=== PATIENT | female | born 1930 | race Caucasian/White ===

== ENCOUNTER 2017-01-15 06:26 | Inpatient (IN) | payer MEDICARE, OTHER ==
[~2017-01-15] VITALS: Ht 162.6 cm; Wt 97.8 kg
[2017-01-15] MEDS ORDERED: ALBUTEROL/IPRATROPIUM 2.5MG/0.5MG, 3 ML NPPB ONE (07:00)
[2017-01-15] MEDS ORDERED: ALBUTEROL/IPRATROPIUM 2.5MG/0.5MG, 3 ML ONE (07:02)
[2017-01-15] MEDS ORDERED: FLUT1DIS5 IH (07:37)
[2017-01-15] MEDS ORDERED: FURO40TA6 PO (07:37)
[2017-01-15] MEDS ORDERED: GUAI1TBM11 PO (07:37)
[2017-01-15] MEDS ORDERED: FLUT1DIS IH (07:37)
[2017-01-15] MEDS ORDERED: ACET250T2 PO (07:51)
[2017-01-15] MEDS ORDERED: TIOT18CA INH (07:51)
[2017-01-15] MEDS ORDERED: METO25TA35 PO (07:51)
[2017-01-15] MEDS ORDERED: ALBU8.5H8 IH (07:51)
[2017-01-15] MEDS ORDERED: POTA10TA11 PO (07:51)
[2017-01-15] MEDS ORDERED: ALBU1.25 NEB (07:51)
[2017-01-15] MEDS ORDERED: POTA500P26 PO (07:51)
[2017-01-15] MEDS ORDERED: MONT10TA6 PO (07:51)
[2017-01-15] MEDS ORDERED: MAGNESIUM SULFATE PMX 2GM/50ML 50 ML IV ONE (08:00)
[2017-01-15] MEDS ORDERED: FUROSEMIDE 20 MG/2 ML IV ONE (08:30)
[2017-01-15] MEDS ORDERED: FUROSEMIDE 20 MG/2 ML ONE (09:05)
[2017-01-15 10:15] VITALS: BP 129/68
[2017-01-15] MEDS ORDERED: hydrALAzine 20 MG/ML, 1ML IVPush PRN (10:30)
[2017-01-15] MEDS ORDERED: ONDANSETRON ODT 4 MG PO PRN (10:30)
[2017-01-15] MEDS ORDERED: GUAIFENESIN/DM 200-20MG, 10ML UDC PO PRN ×2 (10:30)
[2017-01-15] MEDS ORDERED: ONDANSETRON 2MG/ML, 2ML IVPush PRN (10:30)
[2017-01-15] MEDS ORDERED: BISACODYL 10 MG SUPP PR PRN (10:30)
[2017-01-15] MEDS ORDERED: HYDROcodone/APAP 5/325 TABLET PO PRN (10:30)
[2017-01-15] MEDS ORDERED: TRAZODONE 50MG TABLET PO PRN (10:30)
[2017-01-15] MEDS ORDERED: morphine SULFATE 10 MG/ML, 1ML IVPush PRN (10:30)
[2017-01-15] MEDS ORDERED: ACETAMINOPHEN 325 MG TABLET PO PRN (10:30)
[2017-01-15] MEDS ORDERED: ALBUTEROL SULFATE 2.5MG/0.5ML NEB PRN (11:00)
[2017-01-15] MEDS: ALBUTEROL/IPRATROPIUM 2.5MG/0.5MG, 3 ML NPPB SCH ×4 (11:00→22:57)
[2017-01-15] MEDS: methylPREDNISolone SOD SUCC 125 MG/2 ML IVPush SCH ×3 (11:20→23:27)
[2017-01-15] MEDS: LEVOFLOXACIN/PMX 750MG/150ML 150 ML IV SCH (11:20)
[2017-01-15] MEDS: ENOXAPARIN 40 MG/0.4 ML SQ SCH (11:22)
[2017-01-15] MEDS: MONTELUKAST 10 MG TABLET PO SCH (11:22)
[2017-01-15 13:54] VITALS: BP 124/78
[2017-01-15 20:12] VITALS: BP_SYST 146; BP_SYST 167; BP_DIAS 78; BP_DIAS 81
[2017-01-15] MEDS: FAMOTIDINE 20 MG TABLET PO SCH (20:41)
[2017-01-16 00:36] VITALS: BP_SYST 154; BP_SYST 155; BP_DIAS 76; BP_DIAS 78
[2017-01-16] MEDS: ALBUTEROL/IPRATROPIUM 2.5MG/0.5MG, 3 ML NPPB SCH ×5 (02:56→19:04)
[2017-01-16] MEDS: methylPREDNISolone SOD SUCC 125 MG/2 ML IVPush SCH ×4 (05:21→22:36)
[2017-01-16 05:25] LABS: HEMOGLOBIN 13.3 g/dL (11.7-16.4)
[2017-01-16 05:49] LABS: BLOOD UREA NITROGEN 19 mg/dL (7-18)
[2017-01-16] MEDS: POTASSIUM CHLORIDE 20 MEQ TAB.ER.PRT PO SCH (08:48)
[2017-01-16] MEDS: MONTELUKAST 10 MG TABLET PO SCH (08:49)
[2017-01-16] MEDS: FAMOTIDINE 20 MG TABLET PO SCH ×2 (08:50→20:08)
[2017-01-16] MEDS: METOPROLOL TARTRATE 25 MG TABLET PO SCH (08:52)
[2017-01-16] MEDS: ALBUTEROL SULFATE IH SCH (09:00)
[2017-01-16] MEDS ORDERED: FUROSEMIDE 40 MG TABLET PO SCH (09:00)
[2017-01-16 09:15] VITALS: BP 142/64
[2017-01-16] MEDS: ENOXAPARIN 40 MG/0.4 ML SQ SCH (11:36)
[2017-01-16] MEDS: LEVOFLOXACIN/PMX 750MG/150ML 150 ML IV SCH (11:45)
[2017-01-16 13:55] VITALS: BP 145/75
[2017-01-16 20:02] VITALS: BP 142/74
[2017-01-17 01:49] VITALS: BP 111/58
[2017-01-17] MEDS: methylPREDNISolone SOD SUCC 125 MG/2 ML IVPush SCH ×4 (04:25→23:25)
[2017-01-17 04:43] LABS: HEMOGLOBIN 13.4 g/dL (11.7-16.4); WHITE BLOOD COUNT 12.5 x10^3/uL (3.4-10)
[2017-01-17 04:56] LABS: BLOOD UREA NITROGEN 34 mg/dL (7-18)
[2017-01-17 07:00] VITALS: BP 157/91
[2017-01-17] MEDS: ALBUTEROL/IPRATROPIUM 2.5MG/0.5MG, 3 ML NPPB SCH ×4 (07:00→19:03)
[2017-01-17] MEDS: ALBUTEROL SULFATE IH SCH (09:00)
[2017-01-17] MEDS: POTASSIUM CHLORIDE 20 MEQ TAB.ER.PRT PO SCH (09:07)
[2017-01-17] MEDS: MONTELUKAST 10 MG TABLET PO SCH (09:07)
[2017-01-17] MEDS: FAMOTIDINE 20 MG TABLET PO SCH ×2 (09:08→21:12)
[2017-01-17] MEDS: METOPROLOL TARTRATE 25 MG TABLET PO SCH (10:57)
[2017-01-17] MEDS: LEVOFLOXACIN/PMX 750MG/150ML 150 ML IV SCH (10:57)
[2017-01-17] MEDS: ENOXAPARIN 40 MG/0.4 ML SQ SCH (10:58)
[2017-01-17] MEDS: ENOXAPARIN 30 MG/0.3 ML SQ SCH (11:00)
[2017-01-17 13:20] VITALS: BP 142/81
[2017-01-17] MEDS ORDERED: SODIUM CHLORIDE 0.9%, 250ML IVBOLUS ONE (16:30)
[2017-01-17 20:20] VITALS: BP 147/82
[2017-01-18 04:29] LABS: HEMATOCRIT 43.1 % (34.6-47.8); WHITE BLOOD COUNT 10.5 x10^3/uL (3.4-10)
[2017-01-18 04:40] LABS: BLOOD UREA NITROGEN 30 mg/dL (7-18)
[2017-01-18] MEDS: methylPREDNISolone SOD SUCC 125 MG/2 ML IVPush SCH ×4 (04:51→22:28)
[2017-01-18 05:00] VITALS: BP 160/82
[2017-01-18] MEDS: ALBUTEROL/IPRATROPIUM 2.5MG/0.5MG, 3 ML NPPB SCH ×6 (07:00→19:39)
[2017-01-18 08:19] VITALS: BP 156/79
[2017-01-18] MEDS: ALBUTEROL SULFATE IH SCH (09:00)
[2017-01-18] MEDS: METOPROLOL TARTRATE 25 MG TABLET PO SCH (09:13)
[2017-01-18] MEDS: FAMOTIDINE 20 MG TABLET PO SCH ×2 (09:13→20:06)
[2017-01-18] MEDS: POTASSIUM CHLORIDE 20 MEQ TAB.ER.PRT PO SCH (09:13)
[2017-01-18] MEDS: MONTELUKAST 10 MG TABLET PO SCH (09:13)
[2017-01-18 10:03] LABS: POTASSIUM,URINE RANDOM 48 mmol/L
[2017-01-18] MEDS: ENOXAPARIN 30 MG/0.3 ML SQ SCH (11:16)
[2017-01-18] MEDS: LEVOFLOXACIN/PMX 750MG/150ML 150 ML IV SCH (11:16)
[2017-01-18] MEDS: POLYETHYLENE GLYCOL 17 GM PACKET PO PRN (11:57)
[2017-01-18 12:48] VITALS: BP 170/79
[2017-01-18 20:45] VITALS: BP 162/82
[2017-01-19 03:54] VITALS: BP 152/75
[2017-01-19 04:55] LABS: HEMATOCRIT 42.1 % (34.6-47.8); HEMOGLOBIN 13.9 g/dL (11.7-16.4); WHITE BLOOD COUNT 9.2 x10^3/uL (3.4-10)
[2017-01-19 05:06] LABS: BLOOD UREA NITROGEN 30 mg/dL (7-18)
[2017-01-19] MEDS: methylPREDNISolone SOD SUCC 125 MG/2 ML IVPush SCH (05:57)
[2017-01-19] MEDS: ALBUTEROL/IPRATROPIUM 2.5MG/0.5MG, 3 ML NPPB SCH ×4 (07:00→20:00)
[2017-01-19 07:17] VITALS: BP 169/81
[2017-01-19] MEDS: FAMOTIDINE 20 MG TABLET PO SCH ×2 (10:16→20:41)
[2017-01-19] MEDS: POTASSIUM CHLORIDE 20 MEQ TAB.ER.PRT PO SCH (10:16)
[2017-01-19] MEDS: MONTELUKAST 10 MG TABLET PO SCH (10:16)
[2017-01-19] MEDS: LEVOFLOXACIN/PMX 750MG/150ML 150 ML IV SCH (10:16)
[2017-01-19] MEDS: METOPROLOL TARTRATE 25 MG TABLET PO SCH (10:16)
[2017-01-19] MEDS: ALBUTEROL SULFATE IH SCH (10:17)
[2017-01-19] MEDS: ENOXAPARIN 40 MG/0.4 ML SQ SCH (10:28)
[2017-01-19] MEDS ORDERED: FAMO20TA7 PO (11:24)
[2017-01-19] MEDS ORDERED: LEVO750T26 PO (11:24)
[2017-01-19] MEDS ORDERED: METH4TAB2 PO (11:24)
[2017-01-19 12:58] VITALS: BP 147/80
[2017-01-19 18:44] VITALS: BP 152/90
[2017-01-20 01:12] VITALS: BP 146/71
[2017-01-20] MEDS: ALBUTEROL/IPRATROPIUM 2.5MG/0.5MG, 3 ML NPPB SCH ×4 (07:20→20:00)
[2017-01-20 07:35] VITALS: BP 130/77
[2017-01-20] MEDS: ALBUTEROL SULFATE IH SCH (09:00)
[2017-01-20] MEDS: MONTELUKAST 10 MG TABLET PO SCH (10:14)
[2017-01-20] MEDS: FAMOTIDINE 20 MG TABLET PO SCH ×2 (10:14→19:26)
[2017-01-20] MEDS: METOPROLOL TARTRATE 25 MG TABLET PO SCH (10:15)
[2017-01-20] MEDS: POTASSIUM CHLORIDE 20 MEQ TAB.ER.PRT PO SCH (10:15)
[2017-01-20] MEDS: LEVOFLOXACIN/PMX 750MG/150ML 150 ML IV SCH ×2 (11:30→11:50)
[2017-01-20] MEDS: ENOXAPARIN 40 MG/0.4 ML SQ SCH (11:50)
[2017-01-20 12:50] VITALS: BP 107/72
[2017-01-20] MEDS ORDERED: HYDROcodone/APAP 5/325 TABLET PO PRN (19:00)
[2017-01-20] MEDS ORDERED: hydrALAzine 20 MG/ML, 1ML IVPush PRN (19:00)
[2017-01-20] MEDS ORDERED: ONDANSETRON ODT 4 MG PO PRN (19:00)
[2017-01-20] MEDS ORDERED: ACETAMINOPHEN 325 MG TABLET PO PRN (19:00)
[2017-01-20] MEDS ORDERED: BISACODYL 10 MG SUPP PR PRN (19:30)
[2017-01-20] MEDS ORDERED: ONDANSETRON 2MG/ML, 2ML IVPush PRN (19:30)
[2017-01-20 19:39] VITALS: BP 121/74
[2017-01-21 03:09] VITALS: BP 115/55
[2017-01-21] MEDS: ALBUTEROL/IPRATROPIUM 2.5MG/0.5MG, 3 ML NPPB SCH ×3 (04:43→14:45)
[2017-01-21 05:18] LABS: BLOOD UREA NITROGEN 26 mg/dL (7-18)
[2017-01-21 05:22] LABS: HEMATOCRIT 42.8 % (34.6-47.8); WHITE BLOOD COUNT 12.9 x10^3/uL (3.4-10)
[2017-01-21 07:06] VITALS: BP 133/73
[2017-01-21] MEDS: ALBUTEROL SULFATE IH SCH (09:00)
[2017-01-21] MEDS: POTASSIUM CHLORIDE 20 MEQ TAB.ER.PRT PO SCH (09:50)
[2017-01-21] MEDS: FAMOTIDINE 20 MG TABLET PO SCH (09:51)
[2017-01-21] MEDS: METOPROLOL TARTRATE 25 MG TABLET PO SCH (09:51)
[2017-01-21] MEDS: MONTELUKAST 10 MG TABLET PO SCH (09:52)
[2017-01-21] MEDS: LEVOFLOXACIN/PMX 750MG/150ML 150 ML IV SCH (11:30)
[2017-01-21] MEDS: ENOXAPARIN 40 MG/0.4 ML SQ SCH (12:06)
[2017-01-21 12:51] VITALS: BP 124/76
[2017-01-21] MEDS: POLYETHYLENE GLYCOL 17 GM PACKET PO PRN (13:48)
[2017-01-21] MEDS ORDERED: FLU VACC QS2017-18 (36MOS+) UP/PF 0.5 ML IM-VACC ONE (17:00)
== END 2017-01-21 17:50 | DRG 871 ==
LOC: ED 07:12 → EDIP 08:12 → 3NW 10:02
PROVIDERS: ADMIT Internal Medicine; ATTEND Internal Medicine
DX: A41.9 Sepsis, unspecified organism (principal); J96.21 Acute and chronic respiratory failure with hypoxia; I11.0 Hypertensive heart disease with heart failure; J18.9 Pneumonia, unspecified organism; N17.9 Acute kidney failure, unspecified; J44.0 Chronic obstructive pulmonary disease with (acute) lower respiratory infection; I50.9 Heart failure, unspecified; Z99.81 Dependence on supplemental oxygen; J44.1 Chronic obstructive pulmonary disease with (acute) exacerbation; Z88.8 Allergy status to other drugs, medicaments and biological substances; Z91.013 Allergy to seafood; Z82.3 Family history of stroke; Z85.028 Personal history of other malignant neoplasm of stomach; Z85.118 Personal history of other malignant neoplasm of bronchus and lung; Z85.038 Personal history of other malignant neoplasm of large intestine; Z87.891 Personal history of nicotine dependence; Z92.21 Personal history of antineoplastic chemotherapy
CPT/HCPCS: 36415; 71010; 80048; 80061; 82436; 83735; 83880; 84100; 84133; 84300; 84439; 84443; 85025; 87040; 90686; 93005; 93306; 94640; 96365; 96366; 96375; J1650; J1956; J7620; J1940; J2270; J2930; J3475; J7050

== ENCOUNTER 2018-05-02 14:12 | Inpatient (IN) | payer MEDICARE, OTHER ==
[~2018-05-02] VITALS: Ht 162.6 cm; Wt 82.3 kg
[~2018-05-02 14:12] MED LIST: ACET250T2 PO; ALBU1.25 NEB; ALBU8.5H8 IH; FAMO20TA7 PO; FLUT1DIS IH; FLUT1DIS5 IH; FURO40TA6 PO; GUAI1TBM11 PO; LEVO750T26 PO; METH4TAB2 PO; METO25TA35 PO; MONT10TA6 PO; POTA10TA11 PO; POTA500P26 PO; TIOT18CA INH
[2018-05-02] MEDS ORDERED: methylPREDNISolone SOD SUCC 125 MG/2 ML IVP ONE (14:30)
[2018-05-02] MEDS ORDERED: MAGNESIUM SULFATE PMX 2GM/50ML 50 ML IVPB ONE (14:30)
[2018-05-02] MEDS ORDERED: SODIUM CHLORIDE FLUSH 10ML SYR IVF ONE (14:30)
[2018-05-02] MEDS ORDERED: methylPREDNISolone SOD SUCC 125 MG/2 ML ONE (14:33)
[2018-05-02 14:58] LABS: BASOPHILS # (AUTO) 0.02 x10^3/uL (0-0.1); BASOPHILS % (AUTO) 0 % (0-1); EOSINOPHILS # (AUTO) 0.26 x10^3/uL (0-0.4); EOSINOPHILS % (AUTO) 2 % (1-7); LYMPHOCYTES # (AUTO) 2.01 x10^3/uL (1-3.4); LYMPHOCYTES % (AUTO) 18 % (22-44); MD NO; MEAN CORPUSCULAR HEMOGLOBIN 30.7 pg (27.0-34.8); MEAN CORPUSCULAR HGB CONC 32.7 g/dL (32.4-35.8); MEAN CORPUSCULAR VOLUME 94.1 fL (80-100); MEAN PLATELET VOLUME 8.9 fL (7.4-10.4); MONOCYTES # (AUTO) 1.07 x10^3/uL (0.2-0.8); MONOCYTES % (AUTO) 10 % (2-9); NEUTROPHILS % (AUTO) 70 % (42-75); PLATELET COUNT 271 x10^3/uL (130-400); RED BLOOD COUNT 4.66 x10^6/uL (3.82-5.3); RED CELL DISTRIBUTION WIDTH 15.3 % (9.6-15.2)
[2018-05-02] MEDS ORDERED: PLEASE ENTER HEIGHT AND WEIGHT MC SCH (15:00)
[2018-05-02 15:01] LABS: ANION GAP 5 mmol/L (5-15); CALCIUM 9.4 mg/dL (8.5-10.1); CHLORIDE 105 mmol/L (98-107); CREATININE 0.61 mg/dL (0.55-1.02)
[2018-05-02] MEDS ORDERED: TURM1TAB PO (17:08)
[2018-05-02] MEDS ORDERED: CHOL-6 PO (17:08)
[2018-05-02] MEDS ORDERED: VITA1TAB3 PO (17:09)
[2018-05-02] MEDS ORDERED: DOCUSATE 100 MG CAPSULE PO PRN (17:30)
[2018-05-02] MEDS ORDERED: ONDANSETRON 2MG/ML, 2ML IVPush PRN (17:30)
[2018-05-02] MEDS ORDERED: hydrALAzine 20 MG/ML, 1ML IVPush PRN (17:30)
[2018-05-02] MEDS ORDERED: ACETAMINOPHEN 325 MG TABLET PO PRN (17:30)
[2018-05-02] MEDS ORDERED: POLYETHYLENE GLYCOL 17 GM PACKET PO PRN (17:30)
[2018-05-02] MEDS ORDERED: BISACODYL 10 MG SUPP PR PRN (17:30)
[2018-05-02] MEDS ORDERED: LABETALOL 5MG/ML, 20ML IVPush PRN (17:30)
[2018-05-02] MEDS ORDERED: ALBUTEROL/IPRATROPIUM 2.5MG/0.5MG, 3 ML NPPB ONE (18:00)
[2018-05-02] MEDS ORDERED: IPRATROPIUM 0.5 MG/2.5 ML INHA NPPB SCH (19:00)
[2018-05-02] MEDS: BUDESONIDE 0.5 MG/2 ML INHA INH SCH ×2 (19:25→21:00)
[2018-05-02] MEDS: ALBUTEROL/IPRATROPIUM 2.5MG/0.5MG, 3 ML NPPB SCH (19:25)
[2018-05-02 20:00] VITALS: BP 117/66
[2018-05-02] MEDS: FAMOTIDINE 20 MG/2 ML IVPush SCH ×2 (20:38→21:00)
[2018-05-02] MEDS: BUMETANIDE 0.25 MG/ML, 4ML IV SCH (20:39)
[2018-05-02] MEDS: methylPREDNISolone SOD SUCC 125 MG/2 ML IVPush SCH (20:40)
[2018-05-03 01:45] VITALS: BP 132/67
[2018-05-03] MEDS: methylPREDNISolone SOD SUCC 125 MG/2 ML IVPush SCH ×3 (04:44→21:22)
[2018-05-03 06:10] LABS: BASOPHILS # (AUTO) 0.01 x10^3/uL (0-0.1); BASOPHILS % (AUTO) 0 % (0-1); EOSINOPHILS % (AUTO) 0 % (1-7); LYMPHOCYTES # (AUTO) 0.96 x10^3/uL (1-3.4); LYMPHOCYTES % (AUTO) 11 % (22-44); MD NO; MEAN CORPUSCULAR HGB CONC 33.3 g/dL (32.4-35.8); MEAN CORPUSCULAR VOLUME 93.4 fL (80-100); MEAN PLATELET VOLUME 9.5 fL (7.4-10.4); MONOCYTES # (AUTO) 0.18 x10^3/uL (0.2-0.8); MONOCYTES % (AUTO) 2 % (2-9); NEUTROPHILS # (AUTO) 7.64 x10^3/uL (1.8-6.8); NEUTROPHILS % (AUTO) 87 % (42-75); PLATELET COUNT 281 x10^3/uL (130-400); RED BLOOD COUNT 4.88 x10^6/uL (3.82-5.3); RED CELL DISTRIBUTION WIDTH 14.9 % (9.6-15.2)
[2018-05-03 06:14] LABS: ANION GAP 7 mmol/L (5-15); CALCIUM 9.7 mg/dL (8.5-10.1); CHLORIDE 105 mmol/L (98-107)
[2018-05-03 06:15] LABS: CREATININE 0.86 mg/dL (0.55-1.02)
[2018-05-03 07:33] VITALS: BP 126/60
[2018-05-03] MEDS: ALBUTEROL/IPRATROPIUM 2.5MG/0.5MG, 3 ML NPPB SCH ×2 (07:52→20:35)
[2018-05-03] MEDS: BUDESONIDE 0.5 MG/2 ML INHA INH SCH ×2 (07:52→20:46)
[2018-05-03] MEDS: FAMOTIDINE 20 MG/2 ML IVPush SCH ×2 (10:42→21:22)
[2018-05-03] MEDS: POTASSIUM CHLORIDE 20 MEQ TAB.ER.PRT PO SCH (10:42)
[2018-05-03] MEDS: MONTELUKAST 10 MG TABLET PO SCH (10:42)
[2018-05-03] MEDS: BUMETANIDE 0.25 MG/ML, 4ML IV SCH (10:42)
[2018-05-03] MEDS: METOPROLOL TARTRATE 25 MG TABLET PO SCH (10:42)
[2018-05-03] MEDS: CHOLECALCIFEROL 5,000u TAB PO SCH (10:43)
[2018-05-03] MEDS: TEMPLATE NON-FORMULARY MED. (Fluticasone/Salmeterol** (Advair 500-50 Diskus**) 1 PUFF) IH SCH (10:43)
[2018-05-03] MEDS ORDERED: ALBUTEROL/IPRATROPIUM 2.5MG/0.5MG, 3 ML NPPB PRN (11:30)
[2018-05-03 13:46] VITALS: BP 129/66
[2018-05-03 20:38] VITALS: BP 116/56
[2018-05-04 01:24] VITALS: BP 120/70
[2018-05-04] MEDS: methylPREDNISolone SOD SUCC 125 MG/2 ML IVPush SCH ×3 (05:12→20:44)
[2018-05-04 05:40] LABS: BASOPHILS % (AUTO) 0 % (0-1); EOSINOPHILS % (AUTO) 0 % (1-7); LYMPHOCYTES # (AUTO) 0.78 x10^3/uL (1-3.4); LYMPHOCYTES % (AUTO) 7 % (22-44); MD NO; MEAN CORPUSCULAR HEMOGLOBIN 30.6 pg (27.0-34.8); MEAN CORPUSCULAR HGB CONC 32.8 g/dL (32.4-35.8); MEAN CORPUSCULAR VOLUME 93.3 fL (80-100); MEAN PLATELET VOLUME 9.1 fL (7.4-10.4); MONOCYTES % (AUTO) 5 % (2-9); NEUTROPHILS # (AUTO) 10.28 x10^3/uL (1.8-6.8); NEUTROPHILS % (AUTO) 88 % (42-75); PLATELET COUNT 246 x10^3/uL (130-400); RED BLOOD COUNT 4.53 x10^6/uL (3.82-5.3); RED CELL DISTRIBUTION WIDTH 15.5 % (9.6-15.2)
[2018-05-04 05:49] LABS: ALBUMIN 2.8 g/dL (3.4-5.0); ANION GAP 4 mmol/L (5-15); CALCIUM 9.5 mg/dL (8.5-10.1); CHLORIDE 110 mmol/L (98-107)
[2018-05-04 05:50] LABS: CREATININE 0.76 mg/dL (0.55-1.02)
[2018-05-04] MEDS: ALBUTEROL/IPRATROPIUM 2.5MG/0.5MG, 3 ML NPPB SCH ×4 (07:00→19:32)
[2018-05-04 07:27] VITALS: BP 127/63
[2018-05-04] MEDS: BUMETANIDE 0.25 MG/ML, 4ML IV SCH (09:00)
[2018-05-04] MEDS: BUDESONIDE 0.5 MG/2 ML INHA INH SCH ×2 (09:00→19:32)
[2018-05-04] MEDS: TEMPLATE NON-FORMULARY MED. (Fluticasone/Salmeterol** (Advair 500-50 Diskus**) 1 PUFF) IH SCH (09:00)
[2018-05-04] MEDS: CHOLECALCIFEROL 5,000u TAB PO SCH (09:25)
[2018-05-04] MEDS: MONTELUKAST 10 MG TABLET PO SCH (09:25)
[2018-05-04] MEDS: POTASSIUM CHLORIDE 20 MEQ TAB.ER.PRT PO SCH (09:25)
[2018-05-04] MEDS: FAMOTIDINE 20 MG/2 ML IVPush SCH ×2 (09:26→20:44)
[2018-05-04] MEDS: METOPROLOL TARTRATE 25 MG TABLET PO SCH (09:26)
[2018-05-04 14:06] VITALS: BP 134/72
[2018-05-04] MEDS: DOXYCYCLINE 100MG TABLET PO SCH ×2 (16:40→20:44)
[2018-05-04 20:00] VITALS: BP 145/73
[2018-05-05 02:00] VITALS: BP 130/68
[2018-05-05] MEDS: methylPREDNISolone SOD SUCC 125 MG/2 ML IVPush SCH ×2 (05:10→12:31)
[2018-05-05 05:12] LABS: BASOPHILS # (AUTO) 0.01 x10^3/uL (0-0.1); BASOPHILS % (AUTO) 0 % (0-1); EOSINOPHILS % (AUTO) 0 % (1-7); LYMPHOCYTES # (AUTO) 0.69 x10^3/uL (1-3.4); LYMPHOCYTES % (AUTO) 7 % (22-44); MD NO; MEAN CORPUSCULAR HEMOGLOBIN 30.7 pg (27.0-34.8); MEAN CORPUSCULAR HGB CONC 32.9 g/dL (32.4-35.8); MEAN CORPUSCULAR VOLUME 93.3 fL (80-100); MEAN PLATELET VOLUME 8.9 fL (7.4-10.4); MONOCYTES # (AUTO) 0.52 x10^3/uL (0.2-0.8); MONOCYTES % (AUTO) 5 % (2-9); NEUTROPHILS # (AUTO) 9.15 x10^3/uL (1.8-6.8); NEUTROPHILS % (AUTO) 88 % (42-75); PLATELET COUNT 246 x10^3/uL (130-400); RED BLOOD COUNT 4.68 x10^6/uL (3.82-5.3)
[2018-05-05 05:22] LABS: ALBUMIN 2.8 g/dL (3.4-5.0); ANION GAP 2 mmol/L (5-15); CALCIUM 9.4 mg/dL (8.5-10.1); CHLORIDE 109 mmol/L (98-107); CREATININE 0.69 mg/dL (0.55-1.02)
[2018-05-05] MEDS: ALBUTEROL/IPRATROPIUM 2.5MG/0.5MG, 3 ML NPPB SCH ×2 (07:00→10:08)
[2018-05-05] MEDS: BUDESONIDE 0.5 MG/2 ML INHA INH SCH (07:24)
[2018-05-05 07:50] VITALS: BP 116/66
[2018-05-05] MEDS: TEMPLATE NON-FORMULARY MED. (Fluticasone/Salmeterol** (Advair 500-50 Diskus**) 1 PUFF) IH SCH (09:00)
[2018-05-05] MEDS: DOXYCYCLINE 100MG TABLET PO SCH (09:11)
[2018-05-05] MEDS: FAMOTIDINE 20 MG/2 ML IVPush SCH (09:11)
[2018-05-05] MEDS: CHOLECALCIFEROL 5,000u TAB PO SCH (09:12)
[2018-05-05] MEDS: POTASSIUM CHLORIDE 20 MEQ TAB.ER.PRT PO SCH (09:12)
[2018-05-05] MEDS: METOPROLOL TARTRATE 25 MG TABLET PO SCH (09:12)
[2018-05-05] MEDS: MONTELUKAST 10 MG TABLET PO SCH (09:13)
[2018-05-05] MEDS ORDERED: DOXY100T PO (13:17)
[2018-05-05] MEDS ORDERED: TIOT18CA INH (13:17)
[2018-05-05] MEDS ORDERED: FLUT1DIS5 IH (13:17)
[2018-05-05] MEDS ORDERED: ALBU1.25 NEB (13:17)
[2018-05-05] MEDS ORDERED: METH4TAB2 PO (13:17)
[2018-05-05] MEDS ORDERED: DOCU-131 PO (13:17)
[2018-05-05] MEDS ORDERED: MONT10TA6 PO (13:17)
[2018-05-05] MEDS ORDERED: TORS20TA2 PO (14:21)
== END 2018-05-05 15:11 | disposition home or self-care (01) | DRG 291 ==
LOC: ED 15:58 → UNDOADMIN 17:29 → 4EST 17:29 → EDIP 17:29 → 4EST 18:46 → EDIP 18:46 → 4EST 19:09 → DCLOUNGE 05-05 14:50
PROVIDERS: ADMIT Hospitalist; ATTEND Hospitalist
DX: I11.0 Hypertensive heart disease with heart failure (principal); J96.21 Acute and chronic respiratory failure with hypoxia; J44.1 Chronic obstructive pulmonary disease with (acute) exacerbation; I50.33 Acute on chronic diastolic (congestive) heart failure; R79.1 Abnormal coagulation profile; Z85.028 Personal history of other malignant neoplasm of stomach; Z85.038 Personal history of other malignant neoplasm of large intestine; Z85.118 Personal history of other malignant neoplasm of bronchus and lung; Z87.891 Personal history of nicotine dependence; Z92.21 Personal history of antineoplastic chemotherapy
CPT/HCPCS: 36415; 71045; 78582; 80048; 82040; 83735; 83880; 84100; 85025; 85379; 93005; 93970; 94640; 96365; 96366; 96375; 99291; G0378; J7620; J7626; A9540; A9558; C9898; J2930; J3475; J3490